=== PATIENT | female | born 1965 | race Caucasian/White ===

== ENCOUNTER 2016-07-31 21:39 | Emergency (ER) | payer SELFPAY ==
[~2016-07-31] VITALS: Ht 162.6 cm; Wt 86.2 kg
[2016-07-31 21:50] VITALS: BP 146/96; PULSE 103; RESP 20; TEMP 98.1; O2SAT 98
[2016-07-31] MEDS ORDERED: ETOMIDATE 20 MG/ 10 ML VIAL (AMIDATE) IVP ONE (22:00)
[2016-07-31] MEDS ORDERED: MORPHINE 4 MG/ML INJ. SYRINGE IVP ONE ×2 (22:00→23:15)
[2016-07-31] MEDS ORDERED: DIPHENHYDRAMINE INJ 50 MG/ML VIAL IVP ONE (22:00)
[2016-07-31] MEDS ORDERED: ONDANSETRON HCL 4 MG/2 ML VIAL IVP ONE ×2 (22:30→23:15)
[2016-07-31] MEDS ORDERED: ONDANSETRON HCL 4 MG/2 ML VIAL ONE (22:34)
[2016-08-01 00:10] VITALS: BP 121/76; PULSE 76; RESP 16; TEMP 98.1; O2SAT 97
== END 2016-08-01 00:10 | disposition home or self-care (01) ==
LOC: SED 21:39
DX: S43.084A Other dislocation of right shoulder joint, initial encounter (principal); W01.0XXA Fall on same level from slipping, tripping and stumbling without subsequent striking against object, initial encounter; Y93.89 Activity, other specified; Y92.090 Kitchen in other non-institutional residence as the place of occurrence of the external cause; Y99.8 Other external cause status
CPT/HCPCS: 23650; 73030; 96374; 96375; 96376; 99284; J1200; J2270; J2405; J3490